=== PATIENT | male | born 2000 | race Hispanic/Latino ===

== ENCOUNTER 2021-05-23 14:42 | Emergency (ER) | payer OTHER ==
[2021-05-23 14:57] VITALS: BP 118/64
[2021-05-23] MEDS ORDERED: ACETAMINOPHEN 325 MG TAB PO ONE (16:36)
[2021-05-23] MEDS ORDERED: KETOROLAC 10 MG TAB PO ONE (16:36)
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
== END 2021-05-23 17:41 | disposition home or self-care (01) ==
LOC: ED 14:42
DX: G89.29 Other chronic pain (principal); M54.50 Low back pain, unspecified; Z79.899 Other long term (current) drug therapy
CPT/HCPCS: 99282